=== PATIENT | male | born 1985 ===

== ENCOUNTER 2019-05-28 18:34 | Inpatient (IN) | payer BC, SELFPAY ==
[2019-05-28] MEDS ORDERED: Ketamine 50 MG/ML (10ML VIAL) ONE (18:43)
[2019-05-28] MEDS ORDERED: Rocuronium Bromide 10 MG/ML (10ML VIAL) ONE (18:44)
[2019-05-28] MEDS ORDERED: Haloperidol Lactate 5 MG/ML VIAL ONE (18:47)
[2019-05-28] MEDS ORDERED: Lorazepam 2 MG/ML VIAL ONE ×2 (18:47→20:58)
[2019-05-28 18:55] LABS: #Basophils 0.2 thou/uL (0.0-0.2); #Eosinphils 0.2 thou/uL (0.0-0.7); #Lymphocytes 4.9 thou/uL (1.20-3.40); #Monocytes 0.6 thou/uL (0.11-0.59); #Neutrophils 10.7 thou/uL (1.40-6.50); %Eosinophils 0.9 % (0.0-10.0); %Lymphocytes 29.4 % (21.0-51.0); %Monocytes 3.9 % (0.0-10.0); %Neutrophils 64.8 % (42.0-75.0); Mean Corpuscular HGB CONC 33.1 g/dL (32.0-36.0); Mean Corpuscular Hemoglobin 31.6 pg (27.0-31.0); Mean Corpuscular Volume 95.6 fL (78.0-98.0); Mean Platelet Volume 6.5 fL (7.4-10.4); Platelet Count 489 thou/uL (130-400); RBC Distribution Width 12.5 % (11.5-14.5); Red Blood Cell (RBC) Count 5.38 mill/uL (4.70-6.10); White Blood Cell (WBC) Count 16.5 thou/uL (4.8-10.8)
[2019-05-28 19:06] LABS: Bilirubin Negative (Negative); Blood, Urine Negative (Negative); Clarity Clear (Clear); Glucose, Urine (Dipstick) Normal (Negative); Leukocyte Negative Leu/uL (Negative); Nitrite Negative (Negative); Protein, Urine (Dipstick) Negative (Neg-Trace); Urobilinogen Normal mg/dL (Less than 2)
[2019-05-28 19:14] LABS: ALT (SGPT) 33 U/L (8-55); AST (SGOT) 24 U/L (5-34); Acetaminophen Less than 6.0 mcg/mL (10.0-30.0); Albumin 4.7 g/dL (3.5-5.0); Alcohol 288 mg/dL (Less than 10); Alkaline Phosphatase 109 U/L (40-110); Anion Gap 17 mmol/L (10-20); BUN (Urea Nitrogen) 8 mg/dL (8.9-20.6); Bilirubin, Total 0.2 mg/dL (0.2-1.2); Calc. Creatinine Clearance 0 mL/min (70-130); Calcium 9.1 mg/dL (7.8-10.44); Carbon Dioxide 19 mmol/L (22-29); Chloride 110 mmol/L (98-107); Estimated GFR-MDRD 89; Globulin 3.3 g/dL (2.4-3.5); Glucose 86 mg/dL (70-105); Salicylate Less than 8.0 mg/dL (15.0-30.0); Sodium 142 mmol/L (136-145)
[2019-05-28 19:21] LABS: Amphetamine Not Detected (NotDetected); Barbiturates Screen Not Detected (NotDetected); Benzodiazepine Screen Not Detected (NotDetected); Cocaine Metabolite Screen Not Detected (NotDetected); Medtox Control Line Valid? VALID (VALID); Medtox Reader # READER 4; Methadone Not Detected (NotDetected); Methamphetamine Not Detected (NotDetected); Opiate Screen Not Detected (NotDetected); Oxycodone Screen Not Detected (NotDetected); Phencyclidine (PCP) Not Detected (NotDetected); THC/Cannabinoid Screen Not Detected (NotDetected); Tricyclic Screen Not Detected (NotDetected)
--- NOTE | 2019-05-28 19:43 | CT ---
EXAM: BRAIN CT WITHOUT IV CONTRAST: 05/28/19 HISTORY: Altered mental status. Public intoxication, chest pain. FINDINGS: Minimal frontal sinus mucosa disease. Mastoids appear clear. No focal mass or midline shift. No intr a or extra-axial hemorrhage. IMPRESSION: No significant acute intracranial process. Minimal left frontal sinus mucosal disease. POS: RRE
[2019-05-28] MEDS ORDERED: Lorazepam 2 MG/ML VIAL SLOW IVP PRN (23:18)
[2019-05-28] MEDS ORDERED: Haloperidol Lactate 5 MG/ML VIAL SLOW IVP PRN (23:18)
[2019-05-28 23:21] VITALS: BMI 30.5
[2019-05-28] MEDS ORDERED: Bisacodyl 5 MG TAB PO PRN (23:23)
[2019-05-28] MEDS ORDERED: Acetaminophen 325 MG TAB PO PRN (23:23)
[2019-05-28] MEDS ORDERED: Ondansetron PF 4 MG/2 ML Vial IVP PRN (23:23)
[2019-05-28] MEDS ORDERED: Bisacodyl 10 MG SUPP PR PRN (23:23)
[2019-05-28] MEDS ORDERED: Senokot S 8.6-50 MG TAB PO PRN (23:23)
--- NOTE | 2019-05-28 23:39 | PDOC.HHP ---
Hospitalist HPI - History of Present Illness Altered mental status History of Present Illness: Patient is a 33M brought to ED by police for combativeness, had gun and arrested , in car complained of chest pain but then unresponsive and had eyes open, brought to ED, here was GCS 4 but wound suddenly arise and become violent, required a spit protection mask and constant police observation in room, alcohol level elevated, police and ED suspect other substance ingestion but nothing on UDS, however many substances possible that dont show up on UDS. Patient required haldol, ativan, 4 point restraints and ICU admission. Currently sleeping and no events since arrival to ICU floor. Hospitalist ROS - Review of Systems ROS unobtainable: due to mental status Hospitalist History - Past Medical History Other Medical History: unable to obtain due to altered mental status - Past Surgical History Other Surgical History: unable to obtain due to altered mental status - Family History Other Family History: unable to obtain due to altered mental status - Social History Other Social History: unable to obtain due to altered mental status - Exam General - other findings: sleeping, police at bedside, spit mask on Eye: PERRL, anicteric sclera ENT: normocephalic atraumatic, no oropharyngeal lesions, moist mucosa Neck: supple, symmetric, no JVD, no thyromegaly, no lymphadenopathy, no carotid bruit Heart: RRR, no murmur, no gallops, no rubs, normal peripheral pulses Respiratory: CTAB, no wheezes, no rales, no ronchi, normal chest expansion, no tachypnea, normal percussion Gastrointestinal: soft, non-tender, non-distended, normal bowel sounds, no palpable masses, no hepatomegaly, no splenomegaly, no bruit Extremities: no cyanosis, no clubbing, no edema Skin: normal turgor, no lesions, no rashes Neurological: cranial nerve grossly intact, normal sensation to touch, no weakness, no focal deficits, no new deficit Musculoskeletal: normal tone, normal strength, no muscle wasting Psychiatric - other findings: sedated, sleeping Hospitalist Results - Labs Result Diagrams: 05/28/19 18:36 05/28/19 18:36 Lab results: WBC 16.5 thou/uL (4.8-10.8) H 05/28/19 18:36 Hgb 17.0 g/dL (14.0-18.0) 05/28/19 18:36 Hct 51.5 % (42.0-52.0) 05/28/19 18:36 MCV 95.6 fL (78.0-98.0) 05/28/19 18:36 Plt Count 489 thou/uL (130-400) H 05/28/19 18:36 Neutrophils % 64.8 % (42.0-75.0) 05/28/19 18:36 Sodium 142 mmol/L (136-145) 05/28/19 18:36 Potassium 4.0 mmol/L (3.5-5.1) 05/28/19 18:36 Chloride 110 mmol/L (98-107) H 05/28/19 18:36 Carbon Dioxide 19 mmol/L (22-29) L 05/28/19 18:36 BUN 8 mg/dL (8.9-20.6) L 05/28/19 18:36 Creatinine 0.96 mg/dL (0.7-1.3) 05/28/19 18:36 Glucose 86 mg/dL (70-105) 05/28/19 18:36 Calcium 9.1 mg/dL (7.8-10.44) 05/28/19 18:36 Total Bilirubin 0.2 mg/dL (0.2-1.2) 05/28/19 18:36 AST 24 U/L (5-34) 05/28/19 18:36 ALT 33 U/L (8-55) 05/28/19 18:36 Alkaline Phosphatase 109 U/L (40-110) 05/28/19 18:36 Troponin I Less than 0.010 ng/mL (< 0.028) 05/28/19 18:36 Serum Total Protein 8.0 g/dL (6.0-8.3) 05/28/19 18:36 Albumin 4.7 g/dL (3.5-5.0) 05/28/19 18:36 Urine Ketones Negative mg/dL (Negative) 05/28/19 18:52 Urine Blood Negative (Negative) 05/28/19 18:52 Urine Nitrite Negative (Negative) 05/28/19 18:52 Ur Leukocyte Esterase Negative Artemio/uL (Negative) 05/28/19 18:52 Additional comment: VITAL SIGNS FriMay 28, 2019 19:41 JOSH Collins Jeffery BP: 124/68 MAP: 86 Pulse: 94 Resp: 18 Temp: 96.8 (Criticore Temp) Pain: 0 O2 sat: 95 on (2L Oxygen) End-Tidal CO2: 26 Time: 05/28/2019 19:41. VITAL SIGNS FriMay 28, 2019 20:11 JOSH Collins Jeffery BP: 110/46 (Lying) MAP: 64 Pulse: 92 (Regular) Resp: 16 (Non-Labored) Temp: 96.6 (Criticore Temp) Pain: 0 (not applicable) O2 sat: 97 on (2L Oxygen) End-Tidal CO2: 26 Time: 05/28/2019 20:11. VITAL SIGNS FriMay 28, 2019 20:42 JOSH Collins Jeffery BP: 101/48 MAP: 65 Pulse: 93 (Regular) Resp: 16 (Non-Labored) Temp: 96.3 (Criticore Temp) Pain: 0 (not applicable) O2 sat: 98 on (2L Oxygen) End-Tidal CO2: 23 Time: 05/28/2019 20:42. VITAL SIGNS FriMay 28, 2019 20:56 JOSH Collins Jeffery BP: 125/74 MAP: 91 Pulse: 97 Resp: 18 Temp: 96.7 (Criticore Temp) Pain: 0 O2 sat: 96 on (2L Oxygen) Time: 05/28/2019 20:56. VITAL SIGNS FriMay 28, 2019 21:23 JOSH Collins Jeffery BP: 96/50 MAP: 64 Pulse: 92 Resp: 18 Temp: 96.7 (Criticore Temp) Pain: 0 O2 sat: 98 on (2L Oxygen) Time: 05/28/2019 21:23. - EKG Interpretation EKG: EKG NSR rate 98 bpm, QT/QTc 332/423 Hospitalist H&P A/P - Plan Plan: 33M admitted for: # alcohol intoxication # combative/violent behavior # suspected other substance ingestion - admit to ICU, continue restraints, PRN haldol and ativan while detoxing from current substances, [facility] once more alert - CT head without acute findings
[2019-05-29] MEDS ORDERED: FLU VACC QS2019-20(6MOS UP)/PF 60 MCG/0.5 ML SYRINGE IM ONE (07:15)
[2019-05-29] MEDS ORDERED: Enoxaparin Sodium 40 MG/0.4 ML SYRINGE SC SCH (09:00)
[2019-05-29 13:24] LABS: #Basophils 0.1 thou/uL (0.0-0.2); #Eosinphils 0.1 thou/uL (0.0-0.7); #Lymphocytes 2.5 thou/uL (1.20-3.40); #Monocytes 0.7 thou/uL (0.11-0.59); %Basophils 0.9 % (0.0-1.0); %Eosinophils 0.8 % (0.0-10.0); %Lymphocytes 18.2 % (21.0-51.0); %Monocytes 5.3 % (0.0-10.0); %Neutrophils 74.8 % (42.0-75.0); Hemoglobin 15.8 g/dL (14.0-18.0); Mean Corpuscular HGB CONC 33.5 g/dL (32.0-36.0); Mean Corpuscular Hemoglobin 32.3 pg (27.0-31.0); Mean Corpuscular Volume 96.3 fL (78.0-98.0); Mean Platelet Volume 6.3 fL (7.4-10.4); Platelet Count 414 thou/uL (130-400); RBC Distribution Width 12.6 % (11.5-14.5); Red Blood Cell (RBC) Count 4.89 mill/uL (4.70-6.10); White Blood Cell (WBC) Count 13.4 thou/uL (4.8-10.8)
[2019-05-29 13:42] LABS: Anion Gap 15 mmol/L (10-20); BUN (Urea Nitrogen) 7 mg/dL (8.9-20.6); Calc. Creatinine Clearance 158 mL/min (70-130); Calcium 8.5 mg/dL (7.8-10.44); Carbon Dioxide 18 mmol/L (22-29); Chloride 110 mmol/L (98-107); Estimated GFR-MDRD Greater than 90; Glucose 124 mg/dL (70-105); Sodium 139 mmol/L (136-145)
--- NOTE | 2019-05-29 15:29 | CON ---
DATE OF CONSULTATION: 05/29/2019 SERVICE: Pulmonary Medicine. REASON FOR CONSULTATION: ICU patient. HISTORY OF PRESENT ILLNESS: The patient is a 33-year-old white male with past medical history significant for essentially nothing. Apparently, he ended up getting drunk. He brought a gun into a bar. He pulled it out of its kilt and waved it around. There was no other incident in that, but he was detained by the police. Apparently, he went unresponsive in their vehicle, and was subsequently brought to the hospital. It is not clear whether or not he had any seizure activity, but appeared to be postictal when he arrived in the emergency department. A couple of hours later, he ended up having severe combativeness. He ended up getting Haldol, Ativan, and other medications to keep him comfortable. He did not require intubation, but was placed in the ICU for close observation. Overnight, he has become awake and alert. He has no specific complaints. There were no significant fevers overnight. PAST MEDICAL HISTORY: None. PAST SURGICAL HISTORY: None. FAMILY HISTORY: Noncontributory. SOCIAL HISTORY: Positive for alcohol abuse. ALLERGIES: NO KNOWN DRUG ALLERGIES. MEDICATIONS: List of the patient's inpatient medications were reviewed. No specific updates were made. REVIEW OF SYSTEMS: General; head, ears, eyes, nose, and throat; cardiovascular; respiratory; GI; ; musculoskeletal; neurologic; and skin is negative except as mentioned in the HPI. PHYSICAL EXAMINATION: VITAL SIGNS: Afebrile, pulse 101, blood pressure 133/78, respirations 20, and saturation 97% on room air. GENERAL: The patient is awake and alert, in no apparent distress. LUNGS: Decent air entry. There is no prolonged expiratory phase or wheezing present. HEART: Normal rate, regular. ABDOMEN: Soft, nontender, and nondistended. Bowel sounds are positive. MUSCULOSKELETAL: No cyanosis or clubbing. There is no pitting in the bilateral lower extremities. NEUROLOGIC: Grossly nonfocal. LABORATORY DATA: WBC 16.5, hemoglobin 17.0, and platelets 489,000. Basic metabolic profile and liver function studies are otherwise unremarkable. Troponin is negative x1. Urinalysis is negative. Urine drug screen is negative. Alcohol is 288, though. The acetaminophen and salicylates are unremarkable. IMAGING STUDIES: CT of the brain demonstrates no acute intracranial abnormality. ASSESSMENT: 1. Alcohol intoxication, resolved. 2. Violent behavior by pulling gun out of kilt. DISCUSSION AND PLAN: The patient is doing fine from respiratory standpoint. He is hemodynamically stable for transition out of the ICU to the medical unit. We will try to repeat laboratories tomorrow morning including a CBC and basic metabolic profile. We will review him. If he develops signs of infection, additional investigation may be warranted, but currently this event has resolved. When he leaves the ICU, he will have no further requirements for Pulmonary opinion, and I will sign off. Please call with additional questions or concerns through time. 70 minutes have been devoted to this patient in various activities. I personally reviewed all imaging studies and laboratory data noted within this document. For fifty percent of this time, I was interacting with the patient at the bedside or coordinating care with the care team. For the remainder of the time I was immediately available to the patient in the hospital unit. Job ID: [id number] MTDD
[2019-05-29 20:01] VITALS: BP 134/76; TEMP 98.2
--- NOTE | 2019-05-29 20:31 | PDOC.HOSPP ---
- Subjective Encounter Date: 05/29/19 Encounter Time: 16:00 Subjective: The patient states that he is in hospital, brought by [employer], found unresponsive. He currently feels drained, has no appetite and is tired. No other complaints. - Objective Vital Signs & Weight: Vital Signs (12 hours) Temp Pulse Resp BP Pulse Ox 05/29/19 19:45 98.2 F 76 18 134/76 94 L 05/29/19 16:12 98.4 F 68 20 137/74 94 L 05/29/19 14:30 93 L 05/29/19 14:20 98 F 82 20 138/88 93 L 05/29/19 11:00 98.7 F Weight Weight 189 lb 2.506 oz Most Recent Monitor Data Heart Rate from ECG 75 NIBP 130/75 NIBP BP-Mean 93 Respiration from ECG 18 SpO2 94 I&O: 05/28/19 05/29/19 05/30/19 06:59 06:59 06:59 Intake Total 240 240 Output Total 2320 720 Balance -2080 -480 Result Diagrams: 05/29/19 13:13 05/29/19 13:13 Hospitalist ROS - Review of Systems Constitutional: denies: fever, chills - Medication Medications: Active Medications Generic Name Dose Route Start Last Admin Trade Name Freq PRN Reason Stop Dose Admin Enoxaparin Sodium 40 mg 05/29/19 09:00 05/29/19 09:02 Lovenox SC Not Given 0900 YESY - Exam General Appearance: NAD, awake alert Eye: PERRL, anicteric sclera ENT: normocephalic atraumatic, no oropharyngeal lesions Neck: supple, symmetric, no JVD Heart: no gallops Respiratory: CTAB, no wheezes, no rales Gastrointestinal: soft, non-tender, non-distended, no palpable masses Extremities: no cyanosis, no clubbing, no edema Hosp A/P - Plan This is 33 year old male who presented with syncope likely from alcohol intoxication and was arrested by [employer] by pulling a gun out #Alcohol intoxication #Syncope #Acute metabolic encephalopathy - presented with alcohol level of 288. Repeat down to normal - patient still slightly drowsy today. Will monitor for one more day, likely d/ c in am #Leukocytosis - WBC down to 13.4, likely reactive - no fevers
--- NOTE | 2019-05-30 15:05 | DIS ---
DATE OF ADMISSION: 05/28/2019 DATE OF DISCHARGE: 05/29/2019 CONSULTATION: Dr. Vasile Castillo with Critical Care. PROCEDURES: None. BRIEF HISTORY OF PRESENT ILLNESS: This is a 33-year-old male, brought to the emergency room by police for combativeness. The patient reportedly had a gun and was arrested and was complaining of chest pain. The patient briefly had gone unresponsive and EMS was called. On arrival to the ER, the patient was noted to have a positive alcohol level of 288. He did require four-point restraints and ICU admission initially due to severe agitation. CT scan of his brain showed no acute findings. BRIEF HOSPITAL COURSE: 1. Acute encephalopathy secondary to alcohol intoxication/syncope: The patient had required Ativan and Haldol for severe agitation. The following day, the patient was extremely drowsy and the patient reported he did not have an appetite. He was transferred out of the ICU to the floor. Repeat alcohol level done in the evening showed that his alcohol level was normal. In the evening time, the patient was more alert and he was able to eat a regular diet without any nausea or vomiting. The patient was discharged in police custody. He was advised to stop drinking alcohol. He was prescribed thiamine and folic acid on discharge in the event that he continues to drink. 2. Leukocytosis: The patient had a white count of 16.5 on admission. This came down to 13.4. The patient had no fevers. This can be repeated as an outpatient with his PCP. This is most likely secondary to his intoxication. DISCHARGE PHYSICAL EXAMINATION: VITAL SIGNS: Temperature 98.2, heart rate 76, respiratory rate 18, O2 saturation 94% on room air, blood pressure 134/76. GENERAL: The patient is alert, awake, oriented x3. CVS: Regular rate and rhythm with no murmurs, rubs, or gallops. LUNGS: Clear to auscultation bilaterally. ABDOMEN: Positive bowel sounds, soft, nontender, nondistended. EXTREMITIES: No edema. PERTINENT LABORATORY DATA: CBC 05/29: White count 13.4, hemoglobin 15.5, hematocrit 47.1, MCV 96.3, platelets 414. BMP 05/29: Unremarkable except for chloride of 110, bicarb of 18. Anion gap is normal. Troponin-I: Less than 0.010. LFTs on 05/28: AST 24, ALT 33, alkaline phosphatase 109. PERTINENT IMAGING: CT brain: Shows no acute disease. DISCHARGE CONDITION: Stable. ACTIVITY: As tolerated. DIET: Regular diet. DISCHARGE MEDICATIONS: 1. Thiamine 100 mg daily. 2. Folic acid 1 mg daily. DISPOSITION: The patient was discharged in custody of the police. He should follow up with his PCP in a week and continue alcohol cessation. Job ID: [id number] MTDD
== END 2019-05-29 21:45 | DRG 897 ==
LOC: ERS 18:34 → CCU 21:24 → T4-A 21:54
PROVIDERS: ADMIT Internal Medicine; ATTEND Internal Medicine
PROC: HZ2ZZZZ Detoxification Services for Substance Abuse Treatment (ICD-10-PCS; principal; 2019-05-28)
DX: F10.129 Alcohol abuse with intoxication, unspecified (principal); G31.2 Degeneration of nervous system due to alcohol; D72.829 Elevated white blood cell count, unspecified; R45.6 Violent behavior
CPT/HCPCS: 36415; 51702; 70450; 80048; 80053; 80306; 80307; 81003; 84484; 85025; 93005; 96361; 96374; 96375; 96376; 99292; J1630; J2060